=== PATIENT | male | born 1950 ===

== ENCOUNTER 2016-12-24 20:34 | Emergency (ER) | payer BC, MEDICARE ==
[2016-12-24 20:49] VITALS: BP 128/60
[2016-12-24] MEDS ORDERED: Acetaminophen TAB* 325 MG PO ONE (20:54)
--- NOTE | 2016-12-24 21:34 | UC ---
FLU HPI - HPI Summary HPI Summary: Pt is accompanied by . 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 Pt reports that he was not feeling well yesterday with generalized body aches, chills, and right side low back discomfort. Pt reports that he does not drink much water at work because he has not restroom facilities to use. Pt is have known to have elevated glucose. Used to take metformin discontinued due to side effects - History of Current Complaint Chief Complaint: UCGeneralIllness Stated Complaint: FEVER/ ? DEHYDRATION Time Seen by Provider: 12/24/16 20:40 Hx Obtained From: Patient Onset/Duration: Sudden Onset, Lasting Days Severity Currently: Mild Severity Initially: Mild Associated Signs & Symptoms: Positive: Myalgia, Headache - Allergy/Home Medications Allergies/Adverse Reactions: Allergies Allergy/AdvReac Type Severity Reaction Status Date / Time No Known Allergies Allergy Verified 12/24/16 20:48 Home Medications: Home Medications Aspirin [Aspirin Adult Low Dose 81 MG] 81 mg PO DAILY 12/24/16 [History Confirmed 12/24/16] Cinnamon 500 mg PO DAILY 12/24/16 [History Confirmed 12/24/16] Ibuprofen TAB* [Advil TAB*] 400 mg PO Q8H PRN 12/24/16 [History Confirmed ] PMH/Surg Hx/FS Hx/Imm Hx Previously Healthy: Yes - Surgical History Surgical History: Yes Surgery Procedure, Year, and Place: colonectomy 1/3 removed, polyp. - Family History Known Family History: Positive: Other - positive [facility] for CAD - Social History Alcohol Use: None Substance Use Type: None Smoking Status (MU): Never Smoked Tobacco Review of Systems Constitutional: Chills, Fatigue Skin: Negative Eyes: Negative ENT: Negative Respiratory: Cough Cardiovascular: Negative Gastrointestinal: Negative Genitourinary: Negative Motor: Negative Neurovascular: Negative Musculoskeletal: Myalgia Neurological: Headache Psychological: Negative All Other Systems Reviewed And Are Negative: Yes Physical Exam Triage Information Reviewed: Yes Appearance: Ill-Appearing Vital Signs: Initial Vital Signs Temp 102 F 12/24/16 20:36 Pulse 79 12/24/16 20:36 Resp 16 12/24/16 20:36 BP 128/60 12/24/16 20:36 Pulse Ox 98 12/24/16 20:36 Vital Signs Reviewed: Yes Eye Exam: Normal ENT Exam: Other ENT: Positive: Nasal congestion Neck exam: Normal Respiratory Exam: Normal Musculoskeletal Exam: Normal Neurological Exam: Normal Psychological Exam: Normal Skin Exam: Normal Flu Course/Dx - Differential Dx/Diagnosis Differential Diagnosis/HQI/PQRI: Influenza Provider Diagnoses: Influenza B. Rapid flu test + at clinic Discharge - Discharge Plan Condition: Stable Disposition: HOME Patient Education Materials: Influenza (ED) Referrals: [facility] [place] [facility]ICIAN REFERRAL [Outside] Non Staff,Doctor [Medical Doctor] - Additional Instructions: Please follow up with your PCP or return to clinic as needed.
== END 2016-12-24 21:45 | disposition home or self-care (01) ==
LOC: UCCORT 20:34
DX: J11.1 Influenza due to unidentified influenza virus with other respiratory manifestations (principal)
CPT/HCPCS: 81003; 87502; 99212; A9270-GY; G0463

== ENCOUNTER 2016-12-28 11:43 | Emergency (ER) | payer MEDICARE ==
--- NOTE | 2016-12-28 12:45 | ED ---
Influenza-Like Illness - HPI Summary HPI Summary: Pt here w/ persistent sx of body aches, fatigue, rhinorrhea and nasal congestion w/ mild dry cough since dx'd w/ influenza B on 12/24/2016. His LBP continues and skin over Rt flank around to ab feels like it's burning - h/o "internal shingles" and this feels the same. Denies dysuria, urinary frequency, flank pain w/ jarring - had U/A on 12/24 which was normal. He had sx for 5 days prior to 12/24 so no tamiflu was rx'd at that time. He had a fever this day which has not returned since. He has been taking acetaminophen and ibuprofen for pain. 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 Imms are UTD. He has sleep apnea and wears a CPAP but has not been wearing it while napping during the day. reports he's been snoring "hard". He also had "borderline diabetes" controlled w/ diet. Last HGA1C in Fall 2016 was 5%. He had a POC glucose on 12/24 which was 147. Denies N/ V/D. Just tired of being tired. reports body aches last night as well - wonders if she's getting sx now as well. 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 - <Milana Quarles - Last Filed: 12/28/16 13:58> <Charles Venegas - Last Filed: 12/28/16 14:19> - History of Current Complaint Chief Complaint: UCGeneralIllness Time Seen by Provider: 12/28/16 12:25 - Allergy/Home Medications Allergies/Adverse Reactions: Allergies Allergy/AdvReac Type Severity Reaction Status Date / Time No Known Allergies Allergy Verified 12/28/16 12:17 PMH/Surg Hx/FS Hx/Imm Hx Previously Healthy: Yes Endocrine/Hematology History: Reports: Hx Diabetes - "borderline" - last HGA1C Fall 2015 5% Denies: Autoimmune Disease Cardiovascular History: Denies: Hx Congestive Heart Failure, Hx Hypertension Respiratory History: Reports: Hx Sleep Apnea - uses CPAP Neurological History: Reports: Other Neuro Impairments/Disorders - h/o " internal shingles" on Rt flank - Surgical History Surgery Procedure, Year, and Place: colonectomy 1/3 removed, polyp. Infectious Disease History: No Infectious Disease History: Denies: Traveled Outside the [place] in Last 30 Days - Family History Known Family History: Positive: Other - positive [facility] for CAD - Social History Occupation: Employed Full-time Lives: With Family Alcohol Use: None Hx Substance Use: No Substance Use Type: Reports: None Hx Tobacco Use: No Smoking Status (MU): Never Smoked Tobacco <Milana Quarles - Last Filed: 12/28/16 13:58> Review of Systems Positive: Fatigue - see HPI. Negative: Fever, Chills Eyes: Other - eyes are tired, burning Negative: Photophobia, Blurred Vision, Diplopia, Drainage, Erythema Positive: Nasal Discharge - see HPI. Negative: Sore Throat, Ear Ache Negative: Chest Pain Positive: Cough - see HPI. Negative: Shortness Of Breath Gastrointestinal: Negative Negative: Abdominal Pain, Vomiting, Diarrhea, Nausea Genitourinary: Negative Positive: see HPI Positive: Arthralgia, Myalgia. Negative: Decreased ROM, Edema Negative: Rash Neurological: Other - "burning over skin of Rt flank" Negative: Headache, Weakness, Paresthesia, Numbness Psychological: Normal All Other Systems Reviewed And Are Negative: Yes <Milana Quarles - Last Filed: 12/28/16 13:58> Physical Exam Triage Information Reviewed: Yes Vital Signs On Initial Exam: Initial Vitals Temp Pulse Resp BP Pulse Ox 97.4 F 71 16 125/70 99 12/28/16 12:09 12/28/16 12:09 12/28/16 12:09 12/28/16 12:09 12/28/16 12:09 Vital Signs Reviewed: Yes Appearance: Positive: No Pain Distress, Well-Nourished, Ill-Appearing - appears fatigued, sclera injected Skin: Positive: Warm, Dry - no rash over Rt flank/ab Head/Face: Positive: Normal Head/Face Inspection - sinuses NTTP Eyes: Positive: Normal, EOMI, Conjunctiva Clear. Negative: Conjunctiva Inflammed, Discharge ENT: Positive: Normal ENT inspection, Hearing grossly normal, Pharyngeal erythema - cobblestoning, Nasal congestion, Nasal drainage - clear, TMs normal - opaque scarring. Negative: Tonsillar swelling, Tonsillar exudate Neck: Positive: Supple, Nontender, No Lymphadenopathy Respiratory/Lung Sounds: Positive: Clear to Auscultation, Breath Sounds Present. Negative: Rales, Rhonchi, Wheezes Cardiovascular: Positive: Normal, RRR, S1, S2. Negative: Murmur, Rub Abdomen Description: Positive: Soft. Negative: CVA Tenderness (R) Bowel Sounds: Positive: Present Musculoskeletal: Positive: Normal, Strength/ROM Intact - Rt flank is NTTP Neurological: Positive: Normal, Sensory/Motor Intact, Alert, Oriented to Person Place, Time, CN Intact II-III Psychiatric: Positive: Normal <Milana Quarles - Last Filed: 12/28/16 13:58> Vital Signs On Initial Exam: Initial Vitals Temp Pulse Resp BP Pulse Ox 97.4 F 71 16 125/70 99 12/28/16 12:09 12/28/16 12:09 12/28/16 12:09 12/28/16 12:09 12/28/16 12:09 <Charles Venegas - Last Filed: 12/28/16 14:19> Procedures - Procedure Summary Procedure Summary: EKG reviewed and sinus rhythm. no st changes or ectopy. <Charles Venegas - Last Filed: 12/28/16 14:19> Diagnostics - Vital Signs Vital Signs Temp Pulse Resp BP Pulse Ox 12/28/16 12:09 97.4 F 71 16 125/70 99 <Milana Quarles - Last Filed: 12/28/16 13:58> - Vital Signs Vital Signs Temp Pulse Resp BP Pulse Ox 12/28/16 13:49 67 18 113/64 97 12/28/16 12:09 97.4 F 71 16 125/70 99 - Laboratory Lab Results: Lab Results 12/28/16 Range/Units 13:01 POC Glucose (mg/dL) 108 H (74-106) mg/dL Lab Statement: Any lab studies that have been ordered have been reviewed, and results considered in the medical decision making process. <Charles Venegas - Last Filed: 12/28/16 14:19> Flu Symptom Course/Dx - Course Course Of Treatment: Pt dx'd w/ influenza B last week and has not been resting - still working laborous job and here today w/ persistent sx, not sure why he's not feeling better. Reports sx of shingles over Rt flank however no rash is observed. He and report h/o "internal shingles" here. Ordered CXR w/ mild cough to r/o a basilar pneumonia. Along the way to having his CXR, he had a syncopal event w/ pallor and AMS - was directed back into wheelchair and taken onto stretcher - facial color returned and pt responsive while lying supine. Dr. Venegas also assisted in evaluation - reports thready pulse during event which returned to normal upon lying down. Pt is neurovascularly intact after episode - no focal weakness or deficits. His reports he doesn't hydrate well and didn't eat this morning. He was given juice and a snack as well as IV fluids and is feeling better. Discussion w/ pt about importance of further assesment at ED via ambulance. He eventually agreed to go to [facility]. Nurse called [facility] and this check writer spoke w/ Fredrick Resendez NP at [place] [facility]. Discussed pt most likely has dehydration w/ vasovagal response however could have pneumonia, renal infection/stone, cardiac pathology. They will anticipate his arrival. Pt transfered in stable condition. - Physician Notifications Discussed Care Of Patient With: Dr. Venegas <Milana Quarles - Last Filed: 12/28/16 13:58> <Charles Venegas - Last Filed: 12/28/16 14:19> - Diagnoses Provider Diagnoses: Influenza B, Syncope and collapse Discharge <Milana Quarles - Last Filed: 12/28/16 13:58> <Charles Venegas - Last Filed: 12/28/16 14:19> - Discharge Plan Condition: Stable Disposition: TRANS HIGHER L OF CARE FAC Referrals: Rahcelle Belle [Primary Care Provider] -
[2016-12-28] MEDS ORDERED: NS 0.9% 1000 ML* 1,000 ML IV ONE (13:07)
[2016-12-28 13:50] VITALS: BP 113/64
== END 2016-12-28 14:13 | disposition short-term general hospital (02) ==
LOC: UCCORT 11:43
DX: J11.1 Influenza due to unidentified influenza virus with other respiratory manifestations (principal); R55 Syncope and collapse; R73.03 Prediabetes
CPT/HCPCS: 93005; 99213; G0463

== ENCOUNTER 2017-07-28 16:13 | Emergency (ER) | payer MEDICARE ==
[2017-07-28 16:22] VITALS: BP 140/70
--- NOTE | 2017-07-28 16:42 | UC ---
Dizzy HPI HPI Summary: 66 yo male with the onset of true vertigo this AM worse supine or bending over nausea vomiting x 5-6 diaphoresis when vertigo severe no headache no ear ache no roaring in ears has chronic tinnitus no cp or sob no syncope no visual c/o - History Of Current Complaint Chief Complaint: UCDizziness Stated Complaint: vomiting,dizzy Time Seen by Provider: 07/28/17 16:22 Hx Obtained From: Patient Onset/Duration: Gradual Onset, Lasting Hours Timing: Constant Severity Initially: Moderate Severity Currently: Mild Pain Intensity: 0 Character: Room Spinning Aggravating Factor(s): Position Change Alleviating Factor(s): Other - best standing Associated Signs And Symptoms: Positive: Nausea, Vomiting, Tinnitus - chronic - Allergies/Home Medications Allergies/Adverse Reactions: Allergies Allergy/AdvReac Type Severity Reaction Status Date / Time No Known Allergies Allergy Verified 07/28/17 16:33 Home Medications: Home Medications Meclizine TAB* [Antivert 12.5 TAB*] 25 mg PO TID 07/28/17 [History Confirmed 09/13] PMH/Surg Hx/FS Hx/Imm Hx Previously Healthy: Yes - Surgical History Surgical History: Yes Surgery Procedure, Year, and Place: colonectomy 1/3 removed, polyp. - Family History Known Family History: Positive: Cardiac Disease, Hypertension, Diabetes, Other - positive [facility] for CAD - Social History Alcohol Use: None Substance Use Type: None Smoking Status (MU): Never Smoked Tobacco Review of Systems Constitutional: Negative Skin: Negative Eyes: Negative ENT: Negative Respiratory: Negative Cardiovascular: Negative Gastrointestinal: Vomiting, Nausea Genitourinary: Negative Motor: Negative Neurovascular: Negative Musculoskeletal: Negative Neurological: Other - vertigo Psychological: Negative Is Patient Immunocompromised?: No All Other Systems Reviewed And Are Negative: Yes Physical Exam Triage Information Reviewed: Yes Appearance: Well-Appearing, No Pain Distress, Well-Nourished Vital Signs: Initial Vital Signs Temp 97.7 F 07/28/17 16:16 Pulse 73 07/28/17 16:16 Resp 16 07/28/17 16:16 BP 140/70 07/28/17 16:16 Pulse Ox 99 07/28/17 16:16 Eyes: Positive: Conjunctiva Clear, Other: - no nystagmus, eomi/perrl, fundi benign ENT: Positive: TMs normal, Uvula midline. Negative: Hearing grossly normal, Nasal congestion, Nasal drainage, Trismus, Muffled voice, Hoarse voice, Dental tenderness, Sinus tenderness Neck: Positive: Supple, Nontender, No Lymphadenopathy, Other: - no bruits Respiratory: Positive: Lungs clear, Normal breath sounds, No respiratory distress, No accessory muscle use Cardiovascular: Positive: RRR, No Murmur Musculoskeletal: Positive: ROM Intact, No Edema Neurological: Positive: Alert, Other: - CN 2-12 normal, GCS 15/15, dtrs brisk, (-) rhomberg Psychological Exam: Normal Skin Exam: Normal Diagnostics - Radiology No standard instances Xray Interpretation: No Acute Changes - CT brain Radiology Interpretation Completed By: Radiologist - EKG Cardiac Rate: NL Ectopy: None ST Segment: Normal Re-Evaluation - Re-Evaluation First Eval Re-Evaluation Time: 17:36 Change: Improved Dizzy Course/Dx - Differential Dx/Diagnosis Provider Diagnoses: benign paroxysmal positional vertigo Discharge - Discharge Plan Condition: Stable Disposition: HOME Patient Education Materials: Benign Paroxysmal Positional Vertigo (ED) Referrals: Rachelle Blele [Nurse Practitioner] - 3 Days Additional Instructions: continue meclizine as directed
[2017-07-28] MEDS ORDERED: Ondansetron ODT TAB* 4 MG PO ONE (16:44)
--- NOTE | 2017-07-28 17:29 | RAD ---
Indication: Vertigo, vomiting. CT of the brain was performed without IV contrast. Ventricular structures are midline. No midline shift is noted. The extra-axial spaces are unremarkable. There is no evidence of intracranial mass or hemorrhage. No other high or low density lesions are identified. Mastoid air cells and paranasal sinuses are unremarkable. IMPRESSION: No intracranial mass or hemorrhage is noted.
--- OUTSIDE RECORDS SUMMARY | 2017-07-28 19:38 | XMS REPORT ---
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 Rachelle Chaudhry FNP Primary Care Physician Unavailable Payers Type Date Identification Numbers Payment Provider Subscriber Commercial Policy Number: [id number] [employer] PayID: [id number] [address] [address] [place] [address] Problems Description No Information Family History Date Family Member(s) Problem(s) Comments Father due to Heart Disease () Mother due to Cancer () First Brother due to liver disease () Social History Type Date Description Comments 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 Cigarette Use quit smoking in 1972 ETOH Use Rare Use Of Alcohol Allergies, Adverse Reactions, Alerts Date Description Reaction Status Severity Comments 09/11/2015 NKDA active Medications Medication Date Status Form Strength Qnty SIG Indications Ordering Provider Metformin HCL Active Tablets ER 500mg 1 Tablet Unknown ER (Osm) 000 24HR By Mouth Daily Fenofibrate Active Tablets 54mg Unknown 000 Viagra Active Tablets 100mg one by Unknown 000 mouth as needed Aspir-[address] 81mg 1 by Unknown 000 mouth every day Vital Signs Date Vital Result Comment 07/17/2017 Weight 255.38 lb Height 74 inches 6'2" BMI (Body Mass Index) 32.8 kg/m2 BP Systolic 133 mmHg BP Diastolic 77 mmHg Heart Rate 61 /min O2 % BldC Oximetry 98 % Body Temperature 97.6 F [place] Score 0 Pain Level 0 12/01/2015 Weight 253.25 lb steel toed boots Height 74 inches 6'2" BMI (Body Mass Index) 32.5 kg/m2 BP Systolic 134 mmHg BP Diastolic 90 mmHg Heart Rate 66 /min O2 % BldC Oximetry 98 % Body Temperature 97.7 F 10/27/2015 Weight 252.00 lb Height 74 inches 6'2" BMI (Body Mass Index) 32.4 kg/m2 BP Systolic 122 mmHg BP Diastolic 80 mmHg Heart Rate 71 /min O2 % BldC Oximetry 98 % Body Temperature 97.1 F 09/11/2015 Weight 249.00 lb Height 74 inches 6'2" BMI (Body Mass Index) 32.0 kg/m2 BP Systolic 138 mmHg BP Diastolic 84 mmHg Heart Rate 75 /min O2 % BldC Oximetry 98 % Seymour Score 6 Neck Circumference in inches 18 Results Description No Information Procedures Date CPT Code Description Status 09/17/2015 23992 Sleep Study, Simultaneous Recording Of Completed Ventilation,Unattended Encounters Type Date Location Provider CPT E/M Dx Office Visit 12/01/2015 6:00p Main Office Earnest Silva M.D. 51345 G47.33 E66.9 Office Visit 10/27/2015 6:00p Main Office Earnest Silva M.D. 73434 G47.33 E66.9 Office Visit 09/11/2015 10:00a Main Office Peter Garcia M.D 31538 G47.33 Plan of Care No Information Available
--- OUTSIDE RECORDS SUMMARY | 2017-07-28 19:38 | XMS REPORT ---
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 Rachelle Chaudhry FNP Primary Care Physician Unavailable Payers Type Date Identification Numbers Payment Provider Subscriber Commercial Policy Number: [id number] [employer] Manan Markham PayID: [id number] [address] [address] [place] [address] Problems Description No Information Family History Date Family Member(s) Problem(s) Comments Father due to Heart Disease () Mother due to Cancer () First Brother due to liver disease () Social History Type Date Description Comments 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 57904 G47.33 E66.9 Office Visit 10/27/2015 6:00p Main Office Earnest Silva M.D. 11522 G47.33 E66.9 Office Visit 09/11/2015 10:00a Main Office Peter Garcia M.D 12226 G47.33 Plan of Care No Information Available
== END 2017-07-28 17:42 | disposition home or self-care (01) ==
LOC: UCCORT 16:13
DX: H81.10 Benign paroxysmal vertigo, unspecified ear (principal)
CPT/HCPCS: 70450; 93005; 99212; A9270-GY; G0463

== ENCOUNTER 2018-09-07 13:05 | Emergency (ER) | payer MEDICARE ==
[2018-09-07 14:19] VITALS: BP 143/81
--- NOTE | 2018-09-07 14:53 | ED ---
Throat Pain/Nasal Congestion - HPI Summary HPI Summary: 67 yr old male with the complaint of left lower lip discomfort, and mild swelling over the past 5 days, and also some left submandibular glad swelling at this point. He has had no fever or chills. The patient has some dentures, and he states he has some tooth discomfort in this same area with removing the dentures. He denies fever, chills, stridor, difficulty swallowing. No change in voice. He denies ETOH and tobacco. - History of Current Complaint Chief Complaint: UCGeneralIllness Time Seen by Provider: 09/07/18 14:26 - Allergies/Home Medications Allergies/Adverse Reactions: Allergies Allergy/AdvReac Type Severity Reaction Status Date / Time No Known Allergies Allergy Verified 09/07/18 14:21 PMH/Surg Hx/FS Hx/Imm Hx Endocrine/Hematology History: Reports: Hx Diabetes - "borderline" - last HGA1C Fall 2015 5% Cardiovascular History: Denies: Hx Congestive Heart Failure, Hx Hypertension Respiratory History: Reports: Hx Sleep Apnea - uses CPAP Neurological History: Reports: Other Neuro Impairments/Disorders - h/o " internal shingles" on Rt flank - Surgical History Surgery Procedure, Year, and Place: colonectomy 1/3 removed, polyp. 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 All Other Systems Reviewed And Are Negative: Yes Physical Exam Triage Information Reviewed: Yes Vital Signs On Initial Exam: Initial Vitals Temp Pulse Resp BP Pulse Ox 97.6 F 69 18 143/81 99 09/07/18 14:14 09/07/18 14:14 09/07/18 14:14 09/07/18 14:14 09/07/18 14:14 Vital Signs Reviewed: Yes Appearance: Positive: Well-Appearing, No Pain Distress Skin: Positive: Warm, Skin Color Reflects Adequate Perfusion Head/Face: Positive: Normal Head/Face Inspection Eyes: Positive: EOMI ENT: Positive: Pharynx normal, Pharyngeal erythema, TMs normal, Uvula midline, Other - the submandibular gland is mildtender and enlarged. No obvious mass on lip, or fluctuance. Dental: Positive: Other - some dental decay lower left mandibular side. No focal percussive tenderness to the teeth. Neck: Positive: Nontender, No Lymphadenopathy Respiratory/Lung Sounds: Positive: Clear to Auscultation, Breath Sounds Present Cardiovascular: Positive: RRR. Negative: Murmur Abdomen Description: Positive: Nontender Musculoskeletal: Positive: Strength/ROM Intact Neurological: Positive: Sensory/Motor Intact, Alert, Oriented to Person Place, Time, CN Intact II-III, Normal Gait, Speech Normal Psychiatric: Positive: Normal - Jannet Coma Scale Best Eye Response: 4 - Spontaneous Best Motor Response: 6 - Obeys Commands Best Verbal Response: 5 - Oriented Coma Scale Total: 15 Diagnostics - Vital Signs Vital Signs Temp Pulse Resp BP Pulse Ox 09/07/18 14:14 97.6 F 69 18 143/81 99 - Laboratory Lab Statement: Any lab studies that have been ordered have been reviewed, and results considered in the medical decision making process. EENT Course/Dx - Course Course Of Treatment: 67 yr old male with mild lip swelling left lip, and swelling to left submandibular gland. No roshni sign. He will take augmentin over the weekend, and if not better or worsening will go to the ER for further eval. He has a dentist and primary to follow up with, and ENT names have been provided. - Diagnoses Provider Diagnoses: Cellulitis of vermilion border of lower lip, Hypertension Discharge - Sign-Out/Discharge Documenting (check all that apply): Patient Departure All imaging exams completed and their final reports reviewed: No Studies - Discharge Plan Condition: Good Disposition: HOME Prescriptions: Amoxicillin/Clavulanate TAB* [Augmentin TAB 875*] 875 mg PO BID #20 tab Patient Education Materials: Cellulitis (ED), Hypertension (ED) Referrals: No Primary Care Phys,NOPCP [Primary Care Provider] - [facility] [place] [facility] [place]Outside] - 2 Days Earnest Silva MD [Medical Doctor] - 2 Days Shiv Hauser MD [Medical Doctor] - 2 Days Additional Instructions: Be sure to see your dentist and your primary care doctor early next week. For any worsening of symptoms go to the ER. - Billing Disposition and Condition Condition: GOOD Disposition: Home
== END 2018-09-07 14:59 | disposition home or self-care (01) ==
LOC: UCCORT 13:05
DX: K13.0 Diseases of lips (principal); I10 Essential (primary) hypertension; G47.30 Sleep apnea, unspecified; R73.03 Prediabetes
CPT/HCPCS: 99212; G0463

== ENCOUNTER 2018-12-08 16:32 | Emergency (ER) | payer MEDICARE ==
--- NOTE | 2018-12-08 16:34 | UC ---
Laceration HPI - HPI Summary HPI Summary: 67 yo male presents with LEFT thumb laceration. 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 Left thumb went into the blade and he sustained a laceration on his thumb pad. Bandaged the area and came to . He is adamant at this time that he does not want stitches. Unsure date of last tetanus - History Of Current Complaint Stated Complaint: LACERATION LEFT THUMB Time Seen by Provider: 12/08/18 16:33 Hx Obtained From: Patient Laceration Location: Finger Mechanism Of Injury: Sharp Trauma Onset/Duration: Sudden Onset Severity: Mild Pain Intensity: 3 Pain Scale Used: 0-10 Numeric - Allergies/Home Medications Allergies/Adverse Reactions: Allergies Allergy/AdvReac Type Severity Reaction Status Date / Time No Known Allergies Allergy Verified 12/08/18 16:38 Home Medications: Home Medications Levothyroxine TAB* [Synthroid 25 MCG TAB*] 1 tab DAILY 12/08/18 [History Confirmed 12/08/18] PMH/Surg Hx/FS Hx/Imm Hx Endocrine History: Hypothyroidism - Surgical History Surgical History: Yes Surgery Procedure, Year, and Place: colonectomy 1/3 removed, polyp. - Family History Known Family History: Positive: Cardiac Disease, Hypertension, Diabetes, Other - positive [facility] for CAD - Social History Lives: With Family Alcohol Use: None Substance Use Type: None Smoking Status (MU): Never Smoked Tobacco Review of Systems All Other Systems Reviewed And Are Negative: Yes Constitutional: Positive: Negative Skin: Positive: Other - Laceration left thumb Respiratory: Positive: Negative Cardiovascular: Positive: Negative Neurovascular: Positive: Negative Musculoskeletal: Positive: Negative Neurological: Positive: Negative Psychological: Positive: Negative Physical Exam - Summary Physical Exam Summary: GENERAL: NAD. WDWN. No pain distress. SKIN: LEFT THUMB: Pad with 7mm linear laceration through the superficial dermis. Clotted blood and decently well approximated at rest. Lac does not extend over joint line. CHEST: No accessory muscle use. Breathing comfortably and in no distress. CV: Pulses intact. Cap refill <2seconds NEURO: Alert. PSYCH: Age appropriate behavior. Triage Information Reviewed: Yes Vital Signs: Vital Signs: Temp Pulse Resp BP Pulse Ox 98.2 F 79 16 143/78 100 12/08/18 16:39 12/08/18 16:39 12/08/18 16:39 12/08/18 16:39 12/08/18 16:39 Vital Signs Reviewed: Yes Laceration Repair - Laceration Repair 1 Description: Linear Laceration Size After Repair: Length (cm) - 0.7 Modified For Repair: No Irrigation With Pressure Irrigation Device: Yes Closure Material: Skin Adhesive Closure Method: Single Layer Laceration Course/Dx - Course/Dx Course Of Treatment: The wound was irrigated with NS. Discussed with pt that I would recommend stitches as the wound does open slightly with movement of his thumb, but, due to fear, he is adamant that he does not want stitches. Dermabond was applied and wound brought into good approximation to the best of my ability. Wound bandaged with tubegauze. tdap updated today. - Diagnosis Provider Diagnosis: Laceration of left thumb Discharge - Sign-Out/Discharge Documenting (check all that apply): Patient Departure All imaging exams completed and their final reports reviewed: No Studies - Discharge Plan Condition: Stable Disposition: HOME Patient Education Materials: Skin Adhesive Care (ED) Referrals: No Primary Care Phys,NOPCP [Primary Care Provider] - Additional Instructions: If you develop a fever, shortness of breath, chest pain, new or worsening symptoms - please call your PCP or go to the ED. Your blood pressure was mildly elevated at todays visit. Please see your primary provider within 4 weeks for recheck and re-evaluation. 1) Apply a bandage to your thumb daily until well healed - Billing Disposition and Condition Condition: STABLE Disposition: Home
[2018-12-08 16:41] VITALS: BP 143/78
[2018-12-08] MEDS ORDERED: Tetan/Diph/Pertus SYR(Tdap)* 0.5 ML SYR(BOOSTRIX) use SYR IM ONE (16:43)
== END 2018-12-08 17:03 | disposition home or self-care (01) ==
LOC: UCCORT 16:32
DX: S61.012A Laceration without foreign body of left thumb without damage to nail, initial encounter (principal); E03.9 Hypothyroidism, unspecified; Z79.890 Hormone replacement therapy; W31.2XXA Contact with powered woodworking and forming machines, initial encounter; Y92.9 Unspecified place or not applicable
CPT/HCPCS: 12001; 90471; 90715; 99211; G0463